=== PATIENT | female | born 1965 ===

== ENCOUNTER 2018-07-19 18:00 | Emergency (ER) | payer OTHER ==
--- NOTE | 2018-07-19 18:28 | EDM.PDOC ---
ED HPI GENERAL MEDICAL PROBLEM - General Chief Complaint: Back Pain or Injury Stated Complaint: PAIN IN LOWER BACK Time Seen by Provider: 07/19/18 18:28 Source of Information: Reports: Patient History Limitations: Reports: No Limitations - History of Present Illness INITIAL COMMENTS - FREE TEXT/NARRATIVE: HISTORY AND PHYSICAL: History of present illness: Patient is a 53-year-old female who presents to the emergency room with complaints of lumbar back pain. She has seen Dr. Clemente at the [facility] for this low back pain, did receive a x-ray. She is scheduled for an outpatient MRI on 07/26/18. She states today her pain became more severe and radiates down the left gluteus. She attempted to see her chiropractor who states that she could not get adjusted today because of a "bulging disc". Patient is here she has had her diclofenac without any relief of her symptoms. Denies any trauma, injury, or falls.She denies any fever, chills, chest pain, shortness of breath or cough. Denies any GI or symptoms. Denies any urinary or fecal incontinence. Denies any numbness or tingling to the distal extremities. Review of systems: As per history of present illness and below otherwise all systems reviewed and negative. Past medical history: As per history of present illness and as reviewed below otherwise noncontributory. Surgical history: As per history of present illness and as reviewed below otherwise noncontributory. Social history: See social history for further information Family history: As per history of present illness and as reviewed below otherwise noncontributory. Physical exam: General: Well-developed and well-nourished 53-year-old female. Alert and oriented. Nontoxic appearing and in no acute distress. HEENT: Atraumatic, normocephalic, pupils equal and reactive bilaterally, negative for conjunctival pallor or scleral icterus, mucous membranes moist, TMs normal bilaterally, throat clear, neck supple, nontender, trachea midline. No drooling or trismus noted. No meningeal signs. No hot potato voice noted. Lungs: Clear to auscultation, breath sounds equal bilaterally, chest nontender. Heart: S1S2, regular rate and rhythm without overt murmur Abdomen: Soft, nondistended, nontender. Negative for masses or hepatosplenomegaly. Negative for costovertebral tenderness. Pelvis: Stable nontender. Genitourinary: Deferred. Rectal: Deferred. Skin: Intact, warm, dry. No lesions or rashes noted. Extremities: Atraumatic, negative for cords or calf pain. Neurovascular unremarkable. C-spine/Back: No pinpoint vertebral tenderness upon palpation. No crepitus, step -offs or obvious deformities. She does have pain to the low lumbar region to the paraspinous muscles, down the glue and into the posterior thigh. She is able to sit to stand without any difficulty. Stable to twist side to side and flex and extend at the waist although has to do this range of motion slowly as it does cause pain. She denies any urinary or fecal incontinence. Denies any numbness or tingling to her distal extremities. Ambulatory without any difficulty or deficits. Neuro: Awake, alert, oriented. Cranial nerves II through XII unremarkable. Cerebellum unremarkable. Motor and sensory unremarkable throughout. Exam nonfocal. Notes: Did offer to do repeat imaging at this time. She did recently have an x-ray and has an outpatient MRI scheduled, so she declines. We'll give her shot of Norflex. She did take diclofenac on 2 separate occasions earlier today. Medication education was reviewed and discussed. Both patient and voice understanding. Supportive care measures were reviewed and discussed. Voices understanding and is agreeable to plan of care. Denies any further questions or concerns at this time. Diagnostics: Declines Therapeutics: Norflex IM Prescription: Flexeril (#20) Tramadol (#15) Impression: Back pain with sciatica Plan: 1. Alternating gentle heat and ice, whichever feels best, intermittently throughout the day 2. May continue taking the diclofenac that you already have prescribed. Flexeril has been prescribed. This medication may cause drowsiness a do not take it will driving her needing to be functioning outside of the house. 3. Keep your appointment for MRI. Follow-up with the orthopedic provider and/or your primary care provider as we discussed. 4. Return to the ED as needed and as discussed. Definitive disposition and diagnosis as appropriate pending reevaluation and review of above. back Pain Score (Numeric/FACES): 10 - Related Data Allergies Allergy/AdvReac Type Severity Reaction Status Date / Time codeine Allergy Nausea and Verified 07/19/18 18:21 Vomiting shellfish derived Allergy Swollen Verified 07/19/18 18:21 Eyes Home Meds: Home Meds Diclofenac Sodium [Voltaren] 50 mg PO TID 07/19/18 [History] Losartan/Hydrochlorothiazide [Losartan-HCTZ 100-25 MG] 1 tab PO DAILY 07/19/18 [ History] Omeprazole 20 mg PO DAILY 07/19/18 [History] Past Medical History HEENT History: Reports: None Cardiovascular History: Reports: Hypertension Respiratory History: Reports: None Gastrointestinal History: Reports: None Genitourinary History: Reports: None COMM[employer]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[employer] SPECIALIST History: Reports: None Musculoskeletal History: Reports: Other (See Below) Other Musculoskeletal History: buldged discs L2 and L3 Neurological History: Reports: None Psychiatric History: Reports: None Endocrine/Metabolic History: Reports: None Hematologic History: Reports: None Immunologic History: Reports: None Oncologic (Cancer) History: Reports: None Dermatologic History: Reports: None - Past Surgical History Head Surgeries/Procedures: Reports: None HEENT Surgical History: Reports: None Cardiovascular Surgical History: Reports: None Respiratory Surgical History: Reports: None GI Surgical History: Reports: Cholecystectomy Female Surgical History: Reports: Hysterectomy Endocrine Surgical History: Reports: None Neurological Surgical History: Reports: None Musculoskeletal Surgical History: Reports: Hip Replacement Oncologic Surgical History: Reports: None Dermatological Surgical History: Reports: None Social & Family History - Family History Family Medical History: Noncontributory - Tobacco Use Smoking Status *Q: Current Every Day Smoker Years of Tobacco use: 20 Packs/Tins Daily: 0.5 - Caffeine Use Caffeine Use: Reports: None - Recreational Drug Use Recreational Drug Use: No ED ROS GENERAL - Review of Systems Review Of Systems: ROS reveals no pertinent complaints other than HPI. ED EXAM,LOWER BACK PAIN/INJURY - Physical Exam Exam: See Below (See dictation) Course - Vital Signs Last Recorded V/S: Last Vital Signs Temp 96.0 F 07/19/18 18: Pulse 95 07/19/18 18:19 Resp 18 07/19/18 18:19 BP 159/102 H 07/19/18 18:19 Pulse Ox 98 07/19/18 18:19 - Orders/Labs/Meds Meds: Medications Discontinued Medications Generic Name Dose Route Start Last Admin Trade Name Freq PRN Reason Stop Dose Admin Orphenadrine Citrate 60 mg 07/19/18 18:32 Norflex IM 07/19/18 18:33 NOW STA Departure - Departure Time of Disposition: 18:40 Disposition: Home, Self-Care 01 Clinical Impression: Back pain with sciatica - Discharge Information Referrals: PCP,None [Primary Care Provider] - Forms: ED Department Discharge Additional Instructions: The following information is given to patients seen in the emergency department who are being discharged to home. This information is to outline your options for follow-up care. We provide all patients seen in our emergency department with a follow-up referral. The need for follow-up, as well as the timing and circumstances, are variable depending upon the specifics of your emergency department visit. If you don't have a primary care physician on staff, we will provide you with a referral. We always advise you to contact your personal physician following an emergency department visit to inform them of the circumstance of the visit and for follow-up with them and/or the need for any referrals to a consulting specialist. The emergency department will also refer you to a specialist when appropriate. This referral assures that you have the opportunity for follow-up care with a specialist. All of these measure are taken in an effort to provide you with optimal care, which includes your follow-up. Under all circumstances we always encourage you to contact your private physician who remains a resource for coordinating your care. When calling for follow-up care, please make the office aware that this follow-up is from your recent emergency room visit. If for any reason you are refused follow-up, please contact the [facility] Emergency Department at and asked to speak to the emergency department charge nurse. [facility] [address] [place] [id number] [id number] 1. Alternating gentle heat and ice, whichever feels best, intermittently throughout the day 2. May continue taking the diclofenac that you already have prescribed. Flexeril has been prescribed. This medication may cause drowsiness a do not take it will driving her needing to be functioning outside of the house. 3. Keep your appointment for MRI. Follow-up with the orthopedic provider and/or your primary care provider as we discussed. 4. Return to the ED as needed and as discussed.
== END 2018-07-19 19:00 | disposition home or self-care (01) ==
LOC: MW.ED 18:00
DX: M54.42 Lumbago with sciatica, left side (principal); I10 Essential (primary) hypertension; F17.210 Nicotine dependence, cigarettes, uncomplicated; Z79.899 Other long term (current) drug therapy
CPT/HCPCS: 96372; 99283; J2360